=== PATIENT | female | born 1990 | race Caucasian/White ===

== ENCOUNTER 2016-05-16 08:20 | Emergency (ER) ==
[2016-05-16 08:24] VITALS: BP 171/93; TEMP 100; BMI 54.2
[2016-05-16] MEDS ORDERED: DECADRON 4 MG/ML SDV IM STA (08:41)
[2016-05-16] MEDS ORDERED: TORADOL IM STA (08:41)
[2016-05-16] MEDS ORDERED: DUONEB NEB STA (08:41)
--- NOTE | 2016-05-16 08:44 | ED.PDOC ---
General ED Provider: Dr. ALMA WALKER Chief Complaint: Respiratory Complaint Stated Complaint: Been coughing, congestion, sinus closed, headache, took otc meds no help Time Seen by Physician: 08:42 Mode of Arrival: Walk-In Information Source: Patient Nursing and Triage Documentation Reviewed and Agree: Yes Respiratory Complaint Exam - Respiratory Complaint/Exam Symptoms Are: Still present Timing: Constant Initial Severity: Mild Current Severity: Mild Location: Nose, Chest Character: Reports: Productive cough Aggravating: Reports: URI Alleviating: Reports: None Associated Signs and Symptoms: Reports: Wheezing, URI, Nasal congestion. Denies : Rapid breathing, Dyspnea, Fever, Chills, Chest pain, Pleuritic chest pain, Hemoptysis, Dizziness, Calf pain, Calf swelling, Edema, Hoarseness, Sinus discomfort, Vomiting, Sore throat, Weight loss, Decreased oral intake, Increased thirst, Increased appetite, Increased urination Related History: Reports: Similar episode History of Healthcare-Acquired Pneumonia: No Related Surgical History: Reports: None Pulmonary Embolism Risk Factors: None Cardiac Risk Factors: Reports: None Pseudomonas Risk Factors: Reports: None Tuberculosis Risk Factors: Reports: None Status Asthmaticus Risk Factors: Reports: None Home Oxygen Use: No Recent Stress Test: No Recent Echo/LV Function: No Current Antibiotic Use: No Current Asthma Medication Use: No Respiratory Distress: None Inadequate Respiratory Effort: No Dysphagia Present: No Retractions: Not Present Diminished Breath Sounds: No Sinus Tenderness: Frontal Grunting Respirations: No Differential Diagnoses: Pneumonia, Bronchitis, Influenza Review of Systems - Review Of Systems Constitutional: Reports: Fever, Malaise Eyes: Reports: No symptoms Ears, Nose, Mouth, Throat: Reports: Nose discharge Respiratory: Reports: Cough, Short of air Cardiac: Reports: No symptoms GI: Reports: No symptoms : Reports: No symptoms Musculoskeletal: Reports: No symptoms Skin: Reports: No symptoms Neurological: Reports: No symptoms Endocrine: Reports: No symptoms Hematologic/Lymphatic: Reports: No symptoms All Other Systems: Reviewed and Negative Past Medical History - Past Medical History Previously Healthy: Yes Endocrine: Reports: None Cardiovascular: Reports: None Respiratory: Reports: None Hematological: Reports: None Gastrointestinal: Reports: None Genitourinary: Reports: None Neuro/Psych: Reports: None Musculoskeletal: Reports: None Cancer: Reports: None Last Menstrual Period: gave 10 days ago - Surgical History General Surgical History: Reports: None - Family History Family History: Reports: Unknown - Social History Smoking Status: Current every day smoker Smoking Cessation Counseling Time: > 3 min - 10 min Hx Substance Use: No Alcohol Screening: None Physical Exam - Physical Exam Appearance: Ill-appearing, Obese Ill-appearing: Mild Eyes: ESCOBAR, EOMI, Conjunctiva clear ENT: Ears normal, Nose normal, Oropharynx normal Respiratory: Breath sounds diminished, Wheezes Cardiovascular: RRR, Pulses normal, No rub, No murmur GI/: Soft, Nontender, No masses, Bowel sounds normal, No Organomegaly Musculoskeletal: Normal strength, ROM intact, No edema, No calf tenderness Skin: Warm, Dry, Normal color Neurological: Sensation intact, Motor intact, Reflexes intact, Cranial nerves intact, Alert, Oriented Psychiatric: Affect appropriate, Mood appropriate Critical Care Note - Critical Care Note Total Time (mins): 0 Course - Course Orders, Labs, Meds: Lab Review 05/16/16 08:48 Influenza A (Rapid) Negative Influenza B (Rapid) Negative Orders Category Date Time Status NEBULIZER TREATMENT Stat CARDIO 05/16/16 08:41 Completed MOLECULAR GROUP A STREP Stat LAB 05/16/16 08:48 Results RAPID FLU A/B Stat LAB 05/16/16 08:48 Completed STREP SCREEN Stat LAB 05/16/16 08:48 Results Dexamethasone 4 mg/ml Inj [Decadron 4 mg/ml Sdv] MEDS 05/16/16 08:41 Discontinued 4 mg IM ONCE STA Ipratropium/Albuterol Neb [Duoneb] MEDS 05/16/16 08:41 Discontinued 1 vial NEB ONCE STA Ketorolac Tromethamine [Toradol] MEDS 05/16/16 08:41 Discontinued 60 mg IM ONCE STA CXR [CHEST, 2 VIEWS PA & LAT] Stat RADS 05/16/16 08:43 Taken Medications Discontinued Medications Generic Name Dose Route Start Last Admin Trade Name Freq PRN Reason Stop Dose Admin Albuterol/Ipratropium 1 vial 05/16/16 08:41 05/16/16 08:50 Duoneb NEB 05/16/16 08:42 1 vial ONCE STA Administration Dexamethasone Sodium Phosphate 4 mg 05/16/16 08:41 05/16/16 09:10 Decadron 4 Mg/Ml Sdv IM 05/16/16 08:42 4 mg ONCE STA Administration Ketorolac Tromethamine 60 mg 05/16/16 08:41 05/16/16 09:11 Toradol IM 05/16/16 08:42 60 mg ONCE STA Administration Vital Signs: Temp Pulse Resp BP Pulse Ox 05/16/16 08:20 100.0 F H 93 H 20 171/93 H 90 L Departure - Departure Time of Disposition: 10:30 Disposition: HOME SELF-CARE Discharge Problem: URTI (acute upper respiratory infection) Instructions: Upper Respiratory Infection (ED) Condition: Stable Pt referred to PMD for follow-up: No Additional Instructions: INCREASE HYDRATION TYLENOL PRN Prescriptions: Azithromycin [Zithromax] 250 mg PO DIRECTED #6 tablet Guaifenesin/Codeine Phosphate [Robitussin AC Syrup] 10 ml PO Q6H #1 bottle Prednisone 10 mg PO BIDWM #14 tablet Allergies/Adverse Reactions: Allergies Antihistamines - Alkylamine Adverse Reaction (Verified 05/16/16 08:26) Penicillins Adverse Reaction (Verified 05/16/16 08:26) Home Medications: Ambulatory Orders Azithromycin [Zithromax] 250 mg PO DIRECTED #6 tablet 05/16/16 Guaifenesin/Codeine Phosphate [Robitussin AC Syrup] 10 ml PO Q6H #1 bottle 05/16 Hydrocodone Bit/Acetaminophen [[place] 5-325] 1 tab PO TID PRN 05/16/16 Ibuprofen 800 mg PO Q8H 05/16/16 Prednisone 10 mg PO BIDWM #14 tablet 05/16/16 Disposition Discussed With: Patient
[2016-05-16 09:12] LABS: FLU INTERNAL QC INTERNAL QC VALID; RAPID FLU A NEGATIVE (NEGATIVE); RAPID FLU B NEGATIVE (NEGATIVE)
--- NOTE | 2016-05-16 09:45 | DI ---
EXAM: Chest two views HISTORY: Cough and COMPARISON: 05/24/2015 TECHNIQUE: Two views of the chest were performed FINDINGS: Left lower lobe consolidation and/or atelectasis with consolidation favored. Mild scatter ed subsegmental atelectasis. There is no pleural effusion or pneumothorax. The heart is normal in s ize. The mediastinal contour is normal. There are no acute abnormalities of the bones. IMPRESSION: Left lower lobe pneumonia and/or atelectasis with pneumonia favored. Radiographic foll ow-up recommended in 4 - 6 weeks to ensure resolution. Mild scattered subsegmental atelectasis. Report faxed at time of dictation
== END 2016-05-16 09:42 | disposition home or self-care (01) ==
LOC: ED 08:20
DX: J06.9 Acute upper respiratory infection, unspecified (principal); F17.210 Nicotine dependence, cigarettes, uncomplicated; Z98.890 Other specified postprocedural states
CPT/HCPCS: 87651; 87804; 87880; 94640; 96372; 99283

== ENCOUNTER 2016-06-08 09:56 | Emergency (ER) ==
[2016-06-08 10:01] VITALS: BP 142/88; TEMP 96; BMI 52.4
[2016-06-08] MEDS ORDERED: DUONEB NEB STA (10:17)
[2016-06-08] MEDS ORDERED: DECADRON 4 MG/ML SDV IM STA (10:18)
[2016-06-08 10:31] LABS: BASOPHILS % (AUTO) 0.2 % (0.0-3.0); EOSINOPHILS % (AUTO) 0.7 % (0.0-7.0); HEMATOCRIT 33.9 % (37.0-47.0); HEMOGLOBIN 10.7 g/dl (12.0-16.0); IMMATURE GRANULOCYTE % (AUTO) 0.5 % (0.0-5.0); LYMPHOCYTES # (AUTO) 0.5 K/uL (0.60-3.4); LYMPHOCYTES % (AUTO) 11.5 (10.0-50.0); MEAN CORPUSCULAR HEMOGLOBIN 27.5 pg (27.0-31.0); MEAN CORPUSCULAR HGB CONC 31.6 (31.8-35.4); MEAN CORPUSCULAR VOLUME 87.1 fl (81.0-99.0); MONOCYTES # (AUTO) 0.4 K/uL (0.4-2.0); MONOCYTES % (AUTO) 8.3 (0-10); NEUTROPHILS # (AUTO) 3.4 K/ul (2.0-6.9); NEUTROPHILS % (AUTO) 78.8; PLATELET COUNT 151 10^3/uL (140-440); RED BLOOD COUNT 3.89 10^6/ul (4.20-5.40); WHITE BLOOD COUNT 4.36 K/ul (4.6-10.2)
[2016-06-08 10:42] LABS: ABG BASE EXCESS -2 (-2.0-2.0); ABG HCO3 23.1 (22.0-26.0); ABG PCO2 37.6 mmHg (35-45); ABG PH 7.396 (7.35-7.45); ABG TCO2 24 (22.0-28.0)
--- NOTE | 2016-06-08 10:51 | DI ---
EXAM: Two views of the chest. History: Cough. Comparison: Chest radiograph 05/16/2016 Findings: Heart size is normal. Left lower lung infiltrates are not significantly changed. Develop ing upper lobe infiltrates. No definite pleural fluid and no pneumothorax. No acute osseous abnorm alities. Impression: Interval development of bilateral upper lobe infiltrates. No significant interval [place] in left lower lobe infiltrates.
[2016-06-08 11:05] LABS: ALBUMIN 3.2 g/dL (3.4-5.0); ALBUMIN/GLOBULIN RATIO 0.84; ANION GAP 12.6; BILIRUBIN,TOTAL 0.42 mg/dL (0.00-1.20); BUN/CREATININE RATIO 10.25; CALCIUM 8.9 mg/dL (8.2-10.2); CREATININE 0.78 mg/dL (0.60-1.30); POTASSIUM 3.6 mmol/L (3.5-5.10); TROPONIN I 0.012 ng/ml (0.0000-0.4000)
[2016-06-08] MEDS ORDERED: ROCEPHIN IM STA (11:17)
[2016-06-08] MEDS ORDERED: LIDOCAINE 1 % AMP 5 ML (SUTURES) IM STA (11:18)
--- NOTE | 2016-06-08 11:20 | ED.PDOC ---
General ED Provider: Dr. LARISA GONZALEZ Chief Complaint: Fever Stated Complaint: cough, flu like symptoms Time Seen by Physician: 10:00 (leni and megan present during exam and discharge) Mode of Arrival: Walk-In Information Source: Patient Exam Limitations: No limitations Primary Care Provider: MARGARETTE WHIPPLE Nursing and Triage Documentation Reviewed and Agree: Yes Respiratory Complaint Exam - Respiratory Complaint/Exam Symptoms Are: Still present Timing: Intermittent Initial Severity: Moderate Current Severity: Moderate Location: Throat, Chest Character: Reports: Non-productive cough Aggravating: Reports: None Alleviating: Reports: Bronchodilators, Spontaneous resolution Associated Signs and Symptoms: Reports: Chills Related History: Reports: Similar episode History of Healthcare-Acquired Pneumonia: No Related Surgical History: Reports: None Pulmonary Embolism Risk Factors: Smoking Cardiac Risk Factors: Reports: Smoking Pseudomonas Risk Factors: Reports: None Tuberculosis Risk Factors: Reports: None Status Asthmaticus Risk Factors: Reports: None Home Oxygen Use: No Recent Stress Test: No Recent Echo/LV Function: No Current Antibiotic Use: No Current Asthma Medication Use: No Respiratory Distress: None Inadequate Respiratory Effort: No Review of Systems - Review Of Systems Constitutional: Reports: Fever, Malaise Eyes: Reports: No symptoms Ears, Nose, Mouth, Throat: Reports: No symptoms Respiratory: Reports: Cough Cardiac: Reports: No symptoms GI: Reports: No symptoms : Reports: No symptoms Musculoskeletal: Reports: No symptoms Skin: Reports: No symptoms Neurological: Reports: No symptoms Endocrine: Reports: No symptoms Hematologic/Lymphatic: Reports: No symptoms All Other Systems: Reviewed and Negative Past Medical History - Past Medical History Previously Healthy: Yes Endocrine: Reports: None Cardiovascular: Reports: None Respiratory: Reports: None Hematological: Reports: None Gastrointestinal: Reports: None Genitourinary: Reports: None Neuro/Psych: Reports: None Musculoskeletal: Reports: None Cancer: Reports: None Last Menstrual Period: 05/06/16 - Surgical History General Surgical History: Reports: None - Family History Family History: Reports: Unknown - Social History Smoking Status: Current every day smoker Hx Substance Use: No Alcohol Screening: None - Immunizations Tetanus Shot up to Date: Yes Physical Exam - Physical Exam Appearance: Well-appearing, No pain distress, Well-nourished Eyes: ESCOBAR, EOMI, Conjunctiva clear ENT: Ears normal, Nose normal, Oropharynx normal Respiratory: Airway patent, Breath sounds clear, Breath sounds equal, Respirations nonlabored Cardiovascular: RRR, Pulses normal, No rub, No murmur GI/: Soft, Nontender, No masses, Bowel sounds normal, No Organomegaly Musculoskeletal: Normal strength, ROM intact, No edema, No calf tenderness Skin: Warm, Dry, Normal color Neurological: Sensation intact, Motor intact, Reflexes intact, Cranial nerves intact, Alert, Oriented Psychiatric: Affect appropriate, Mood appropriate Interpretation - Radiology Interpretation Radiology Interpretation By: Radiologist Radiology Results: Positive (pneumonia) Critical Care Note - Critical Care Note Total Time (mins): 0 Course - Course Hematology/Chemistry: 06/08/16 10:20 06/08/16 10:20 Orders, Labs, Meds: Lab Review 06/08/16 06/08/16 10:17 10:20 WBC 4.36 L RBC 3.89 L Hgb 10.7 L Hct 33.9 L MCV 87.1 MCH 27.5 MCHC 31.6 L RDW Coeff of Shar 15.4 H Plt Count 151 Immature Gran % (Auto) 0.5 Neut % (Auto) 78.8 Lymph % (Auto) 11.5 [place] % (Auto) 8.3 Eos % (Auto) 0.7 Baso % (Auto) 0.2 Immature Gran # (Auto) 0.0 Neut # 3.4 Lymph # 0.5 L [place] # 0.4 Eos # 0.0 Baso # 0.0 D-Dimer 0.24 Puncture Site L brach O2 Saturation 92.0 L ABG pH 7.396 ABG pCO2 37.6 ABG pO2 63.0 L ABG HCO3 23.1 ABG Total CO2 24 ABG Base Excess -2 Ad Test + FiO2 % 21.0 Sodium 140 Potassium 3.6 Chloride 106 Carbon Dioxide 25 Anion Gap 12.6 BUN 8 Creatinine 0.78 Estimated GFR (MDRD) 89.00 BUN/Creatinine Ratio 10.25 Glucose 99 Calcium 8.9 Total Bilirubin 0.42 AST 31 ALT 27 Alkaline Phosphatase 91 Total Creatine Kinase 122 CK-MB (CK-2) 1.0 CK-MB (CK-2) % 0.71434 Troponin I 0.0120 Total Protein 7.0 Albumin 3.2 L Globulin 3.8 Albumin/Globulin Ratio 0.84 Orders Category Date Time Status ABG DRAW REQUEST Stat CARDIO 06/08/16 10:17 Completed EKG-(ED ONLY) Stat CARDIO 06/08/16 10:51 Ordered NEBULIZER TREATMENT Stat CARDIO 06/08/16 10:17 Completed ABG Stat LAB 06/08/16 10:17 Completed CBC W/ AUTO DIFF Stat LAB 06/08/16 10:20 Completed COMPREHENSIVE METABOLIC PANEL Stat LAB 06/08/16 10:20 Completed CREATINE KINASE Stat LAB 06/08/16 10:20 Completed D-DIMER Stat LAB 06/08/16 10:20 Completed TROPONIN I Stat LAB 06/08/16 10:20 Completed Ceftriaxone Sodium [Rocephin] MEDS 06/08/16 11:17 Discontinued 1 gm IM ONCE STA Dexamethasone 4 mg/ml Inj [Decadron 4 mg/ml Sdv] MEDS 06/08/16 10:18 Discontinued 4 mg IM ONCE STA Ipratropium/Albuterol Neb [Duoneb] MEDS 06/08/16 10:17 Discontinued 1 vial NEB ONCE STA Lidocaine HCl/Pf [Lidocaine 1 % Amp 5 ml (Sutures)] MEDS 06/08/16 11:18 Discontinued 2.1 ml IM ONCE STA CHEST, 2 VIEWS PA & LAT Stat RADS 06/08/16 10:15 Completed Medications Discontinued Medications Generic Name Dose Route Start Last Admin Trade Name Freq PRN Reason Stop Dose Admin Albuterol/Ipratropium 1 vial 06/08/16 10:17 06/08/16 10:37 Duoneb NEB 06/08/16 10:18 1 vial ONCE STA Administration Ceftriaxone Sodium 1 gm 06/08/16 11:17 Rocephin IM 06/08/16 11:18 ONCE STA Dexamethasone Sodium Phosphate 4 mg 06/08/16 10:18 06/08/16 10:29 Decadron 4 Mg/Ml Sdv IM 06/08/16 10:19 4 mg ONCE STA Administration Lidocaine HCl 2.1 ml 06/08/16 11:18 Lidocaine 1 % Amp 5 Ml (Sutures) IM 06/08/16 11:19 ONCE STA Vital Signs: Temp Pulse Resp BP Pulse Ox 06/08/16 09:56 96 F L 100 H 22 142/88 H 990 H Departure - Departure Time of Disposition: 11:20 Disposition: AMA Discharge Problem: Fever, Pneumonia Instructions: Pneumonitis (ED) Condition: Good Pt referred to PMD for follow-up: No Additional Instructions: Please call your Family Physician as soon as possible to schedule a follow-up appointment. you left against my advise , this condition is a serious problem you cant from problem please see your dcotor as soon as possible retrurn if you change your mind Allergies/Adverse Reactions: Allergies Antihistamines - Alkylamine Adverse Reaction (Verified 06/08/16 10:05) Penicillins Adverse Reaction (Verified 06/08/16 10:05)
== END 2016-06-08 11:53 | disposition left against medical advice (07) ==
LOC: ED 09:56
DX: J18.9 Pneumonia, unspecified organism (principal); F17.210 Nicotine dependence, cigarettes, uncomplicated
CPT/HCPCS: 36415; 80053; 82550; 82553; 82803; 84484; 85025; 85379; 94640; 96372; 99284

== ENCOUNTER 2016-09-11 16:25 | Outpatient (CLI) ==
[2016-09-11 17:25] LABS: BASOPHILS % (AUTO) 0.2 % (0.0-3.0); EOSINOPHILS # (AUTO) 0.3 K/ul (0.0-0.7); EOSINOPHILS % (AUTO) 3.6 % (0.0-7.0); HEMATOCRIT 36.9 % (37.0-47.0); HEMOGLOBIN 11.6 g/dl (12.0-16.0); IMMATURE GRANULOCYTE % (AUTO) 0.1 % (0.0-5.0); LYMPHOCYTES # (AUTO) 1.8 K/uL (0.60-3.4); LYMPHOCYTES % (AUTO) 21.7 (10.0-50.0); MEAN CORPUSCULAR HEMOGLOBIN 26.2 pg (27.0-31.0); MEAN CORPUSCULAR HGB CONC 31.4 (31.8-35.4); MEAN CORPUSCULAR VOLUME 83.3 fl (81.0-99.0); MONOCYTES # (AUTO) 0.6 K/uL (0.4-2.0); MONOCYTES % (AUTO) 6.6 (0-10); NEUTROPHILS # (AUTO) 5.7 K/ul (2.0-6.9); NEUTROPHILS % (AUTO) 67.8; PLATELET COUNT 187 10^3/uL (140-440); RED BLOOD COUNT 4.43 10^6/ul (4.20-5.40); WHITE BLOOD COUNT 8.43 K/ul (4.6-10.2)
[2016-09-11 18:11] LABS: ALBUMIN 3.4 g/dL (3.4-5.0); ALBUMIN/GLOBULIN RATIO 0.79; ANION GAP 10.9; BILIRUBIN,TOTAL 0.32 mg/dL (0.00-1.20); BUN/CREATININE RATIO 11.53; CALCIUM 9.3 mg/dL (8.2-10.2); CHOL/HDL RATIO 2.8 (4.5-5.5); CREATININE 0.78 mg/dL (0.60-1.30); FERRITIN 15.44 ng/mL (4.63-204.00); POTASSIUM 3.9 mmol/L (3.5-5.10); TOTAL PROTEIN 7.7 g/dL (6.4-8.2)
== END 2016-09-11 16:26 | disposition home or self-care (01) ==
LOC: LAB 16:25
PROVIDERS: ATTEND Nurse Practitioner Family
DX: J45.909 Unspecified asthma, uncomplicated (principal); E66.9 Obesity, unspecified; Z72.0 Tobacco use; Z86.2 Personal history of diseases of the blood and blood-forming organs and certain disorders involving the immune mechanism
CPT/HCPCS: 36415; 80053; 80061; 82607; 82728; 83540; 83550; 84443; 84466; 85025

== ENCOUNTER 2016-10-29 01:18 | Emergency (ER) ==
[2016-10-29 01:28] VITALS: BP 144/87; TEMP 98.1; BMI 51.2
[2016-10-29] MEDS ORDERED: TORADOL IM STA (01:36)
--- NOTE | 2016-10-29 01:40 | ED.PDOC ---
General ED Provider: Dr. LINNETTE TOBAR-ER Chief Complaint: Tooth Problem Stated Complaint: my teeth really hurt Time Seen by Physician: 01:37 Mode of Arrival: Walk-In Information Source: Patient Exam Limitations: No limitations Primary Care Provider: MARGARETTE WHIPPLE Nursing and Triage Documentation Reviewed and Agree: Yes EENT Complaint Exam - Dental/Oral Complaint/Exam Mechanism of Injury: No known trauma Onset/Duration: 24 hrs Symptoms Are: Still present Timing: Constant Initial Severity: Mild Current Severity: Moderate Location: right lower molar Character: Reports: Dull, Aching, Throbbing Aggravating: Reports: Heat, Cold, Chewing Alleviating: Reports: None Associated Signs and Symptoms: Denies: Swelling, Discharge, Fever, Foul odor, Foul taste in mouth Related History: Reports: Previous tooth problem Cardiac Risk Factors: Reports: None Dental/Oral Surgical History: Reports: None Tooth Findings: Present: Percussion tenderness, Gross decay, Gross caries Cervical Lymphadenopathy Present: No Facial Swelling Present: No Bleeding Present: No Oropharynx Findings: Absent: Clots, Active bleeding Septal Hematoma: No Foreign Body Present: No Dysphagia Present: No Drooling Present: No Asymmetrical Tonsillar Swelling Present: No Uvula Midline: Yes Rissa-tonsillar Fluctuence: No Trismus Present: No Palatal Petechiae Present: No Scarlatinaform Rash Present: No Differential Diagnoses: Dental Caries Review of Systems - Review Of Systems Constitutional: Reports: No symptoms Eyes: Reports: No symptoms Ears, Nose, Mouth, Throat: Reports: Mouth pain Respiratory: Reports: No symptoms Cardiac: Reports: No symptoms GI: Reports: No symptoms : Reports: No symptoms Musculoskeletal: Reports: No symptoms Skin: Reports: No symptoms Neurological: Reports: No symptoms Endocrine: Reports: No symptoms Hematologic/Lymphatic: Reports: No symptoms All Other Systems: Reviewed and Negative Past Medical History - Past Medical History Previously Healthy: Yes Endocrine: Reports: None Cardiovascular: Reports: None Respiratory: Reports: None Hematological: Reports: None Gastrointestinal: Reports: None Genitourinary: Reports: None Neuro/Psych: Reports: None Musculoskeletal: Reports: None Cancer: Reports: None Last Menstrual Period: 4 days ago - Surgical History General Surgical History: Reports: None - Family History Family History: Reports: Unknown - Social History Smoking Status: Current every day smoker Hx Substance Use: Yes (occasional marijuana) Alcohol Screening: Occasionally - Immunizations Tetanus Shot up to Date: No (unsure) Physical Exam - Physical Exam Appearance: Well-appearing, No pain distress, Well-nourished Pain Distress: Moderate Eyes: ESCOBAR, EOMI, Conjunctiva clear ENT: Ears normal, Nose normal, Oropharynx normal Neck: Supple Respiratory: Airway patent, Breath sounds clear, Breath sounds equal, Respirations nonlabored Cardiovascular: RRR, Pulses normal, No rub, No murmur GI/: Soft, Nontender, No masses, Bowel sounds normal, No Organomegaly Musculoskeletal: Normal strength Skin: Warm, Dry, Normal color Neurological: Sensation intact, Motor intact, Reflexes intact, Cranial nerves intact, Alert, Oriented Psychiatric: Affect appropriate, Mood appropriate Critical Care Note - Critical Care Note Total Time (mins): 0 Course - Course Orders, Labs, Meds: Orders Category Date Time Status Ketorolac Tromethamine [Toradol] MEDS 10/29/16 01:36 Stat 60 mg IM ONCE STA Medications Generic Name Dose Route Start Last Admin Trade Name Freq PRN Reason Stop Dose Admin Ketorolac Tromethamine 60 mg 10/29/16 01:36 Toradol IM 10/29/16 01:37 ONCE STA Vital Signs: Temp Pulse Resp BP Pulse Ox 10/29/16 01:19 98.1 F 69 20 144/87 H 98 Departure - Departure Time of Disposition: 01:39 Disposition: HOME SELF-CARE Discharge Problem: Dental caries Instructions: Toothache (ED) Condition: Good Pt referred to PMD for follow-up: Yes Additional Instructions: clindamycin 150mg tid x 7days..norco 5mg q 4hrs prn pain #10--f/u dentist janeth Allergies/Adverse Reactions: Allergies Antihistamines - Alkylamine Adverse Reaction (Verified 10/29/16 01:28) Penicillins Adverse Reaction (Verified 10/29/16 01:28) Disposition Discussed With: Patient
== END 2016-10-29 01:55 | disposition home or self-care (01) ==
LOC: ED 01:18
DX: K02.7 Dental root caries (principal); F17.210 Nicotine dependence, cigarettes, uncomplicated
CPT/HCPCS: 96372; 99282

== ENCOUNTER 2017-11-11 10:08 | Outpatient (CLI) ==
--- NOTE | 2017-11-11 11:20 | DI ---
EXAM: Two views of the chest. History: Acute upper respiratory infection. Comparison: Chest radiograph 06/08/2016 Findings: Heart size is normal. Right perihilar infiltrate. No appreciable pleural fluid and no pn eumothorax. No acute osseous abnormalities. Impression: Right perihilar pneumonia. Follow-up recommended.
== END 2017-11-11 10:09 | disposition home or self-care (01) ==
LOC: RAD 10:08
PROVIDERS: ATTEND Emergency Medicine
DX: J06.9 Acute upper respiratory infection, unspecified (principal); J45.909 Unspecified asthma, uncomplicated

== ENCOUNTER 2018-02-15 11:11 | Emergency (ER) ==
[2018-02-15 11:18] VITALS: BMI 44.9
--- NOTE | 2018-02-15 14:28 | ED.PDOC ---
General ED Provider: Dr. LARISA GONZALEZ Chief Complaint: Behavioral Complaint Stated Complaint: depressed suicidal ideation . pt stated she has money issues, has no reiends no family member swill help her 4 days agotook some pills but she does not know what meds were taken but, stated only 3 to 4 pills were consumed . Time Seen by Physician: 11:11 Mode of Arrival: Walk-In Information Source: Patient Exam Limitations: No limitations Nursing and Triage Documentation Reviewed and Agree: Yes Does patient meet sepsis criteria?: No System Inflammatory Response Syndrome: Not Applicable Sepsis Protocol: For patient's 13 years and over: Temp is 96.8 and below OR 101 and greater Pulse >90 BPM Resp >20/minute Acutely Altered Mental Status Are patient's symptoms suggestive of a new infection, such as: -Pneumonia -Skin, Soft Tissue -Endocarditis -UTI -Bone, Joint Infection -Implantable Device -Acute Abdominal Infection -Wound Infection -Meningitis -Blood Stream Catheter Infection -Unknown Psychological Complaint Exam - Psychiatric Complaint/Exam Patient Complains Of: Present: Depression, Suicidal thoughts, Suicidal gestures (4 days ago), Other (none since ) Onset/Duration: 1 week Symptoms Are: Still present Timing: Intermittent Episodes Lasting: Days Initial Severity: Moderate Current Severity: Mild Character: Present: Depressed, Fearful, Anxious, Frustrated Aggravating: Reports: Recent stress (money related issues ) Associated Signs And Symptoms: Denies: Hostile, Confused, Hallucinating, Paranoid behavior, Sleep disturbance, Appetite change Related History: Reports: Suicidal thoughts, Prior attempts, Recent stressors, Drug ingestion (4days ago meds were not disclosed ). Denies: Suicidal gestures , Homicidal thoughts, Homicidal plan, Homicidal gestures Completed Suicide Risk Factors: Past suicide attempt Patient Accompanied By: Other (was sent by mental health) Patient In Custody Of Police: No Social Withdrawal Present: Yes Social Isolation Present: Yes Prior Suicide Attempt: Yes Injury From Prior Suicide Attempt: No Related Surgical History: Reports: None Patient Uncooperative For Exam: No Mood: Present: Depressed, Angry, Agitated, Anxious. Absent: Guarded, Paranoid, Hallucinating, Manic, Hearing voices Appearance: Present: Clean Thought Process: Present: Logical Insight: Present: Good Memory: Intact Judgement: Impaired Danger To Others: No Patient Medically Stable For: Psych evaluation Differential Diagnoses: Depression, Suicidal Ideation Review of Systems - Review Of Systems Constitutional: Reports: No symptoms Eyes: Reports: No symptoms Ears, Nose, Mouth, Throat: Reports: No symptoms Respiratory: Reports: No symptoms Cardiac: Reports: No symptoms GI: Reports: No symptoms : Reports: No symptoms Musculoskeletal: Reports: No symptoms Skin: Reports: No symptoms Neurological: Reports: Emotional problems Endocrine: Reports: No symptoms Hematologic/Lymphatic: Reports: No symptoms All Other Systems: Reviewed and Negative Past Medical History - Past Medical History Previously Healthy: Yes Endocrine: Reports: None Cardiovascular: Reports: None Respiratory: Reports: None Hematological: Reports: None Gastrointestinal: Reports: None Genitourinary: Reports: None Neuro/Psych: Reports: None Musculoskeletal: Reports: None Cancer: Reports: None Last Menstrual Period: JAN 27 2018 - Surgical History General Surgical History: Reports: None - Family History Family History: Reports: Unknown - Social History Smoking Status: Current every day smoker Hx Substance Use: Yes (occasional marijuana) Alcohol Screening: Occasionally Physical Exam - Physical Exam Appearance: Well-appearing, No pain distress, Well-nourished Eyes: ESCOBAR, EOMI, Conjunctiva clear ENT: Ears normal, Nose normal, Oropharynx normal Respiratory: Airway patent, Breath sounds clear, Breath sounds equal, Respirations nonlabored Cardiovascular: RRR, Pulses normal, No rub, No murmur GI/: Soft, Nontender, No masses, Bowel sounds normal, No Organomegaly Musculoskeletal: Normal strength, ROM intact, No edema, No calf tenderness Skin: Warm, Dry, Normal color Neurological: Sensation intact, Motor intact, Reflexes intact, Cranial nerves intact, Alert, Oriented Psychiatric: Affect appropriate, Mood appropriate Critical Care Note - Critical Care Note Total Time (mins): 0 Course - Course Hematology/Chemistry: 02/15/18 11:45 02/15/18 11:45 Orders, Labs, Meds: Lab Review 02/15/18 02/15/18 02/15/18 11:16 11:30 11:45 WBC 9.04 RBC 4.50 Hgb 13.4 Hct 39.7 MCV 88.2 MCH 29.8 MCHC 33.8 RDW Coeff of Shar 13.4 Plt Count 169 Immature Gran % (Auto) 0.3 Neut % (Auto) 72.4 Lymph % (Auto) 19.0 [place] % (Auto) 5.3 Eos % (Auto) 2.8 Baso % (Auto) 0.2 Immature Gran # (Auto) 0.0 Neut # (Auto) 6.5 Lymph # (Auto) 1.7 [place] # (Auto) 0.5 Eos # (Auto) 0.3 Baso # (Auto) 0.0 Sodium Potassium Chloride Carbon Dioxide Anion Gap BUN Creatinine Estimated GFR (MDRD) BUN/Creatinine Ratio Glucose Calcium Total Bilirubin AST ALT Alkaline Phosphatase Total Protein Albumin Globulin Albumin/Globulin Ratio Serum , Qual Urine Color Yellow Urine Clarity Slightly Urine pH 5.5 Ur Specific [place] 1.020 Urine Protein Negative Urine Glucose (UA) Negative Urine Ketones Negative Urine Blood Negative Urine Nitrite Negative Urine Bilirubin Negative Urine Urobilinogen 0.2 Ur Leukocyte Esterase Trace Urine Microscopic RBC 0-2 Urine Microscopic WBC 0-2 Ur Squamous Epith Cells 2-5 Urine Bacteria 2+ Urine Mucus 1+ Salicylate Level mg/dL Urine Opiates Screen Negative Ur Oxycodone Screen Negative Urine Methadone Screen Negative Ur Propoxyphene Screen Negative Acetaminophen Ur Barbiturates Screen Negative U Tricyclic Antidepress Negative Ur Phencyclidine Scrn Negative Ur Amphetamine Screen Negative U Methamphetamines Scrn Negative U Benzodiazepines Scrn Negative Urine Cocaine Screen Negative U Cannabinoids Screen Positive Plasma/Serum Alcohol Influ A Molecular Assay Influ B Molecular Assay 02/15/18 02/15/18 02/15/18 11:45 11:45 15:50 WBC RBC Hgb Hct MCV MCH MCHC RDW Coeff of Shar Plt Count Immature Gran % (Auto) Neut % (Auto) Lymph % (Auto) [place] % (Auto) Eos % (Auto) Baso % (Auto) Immature Gran # (Auto) Neut # (Auto) Lymph # (Auto) [place] # (Auto) Eos # (Auto) Baso # (Auto) Sodium 137.9 Potassium 3.80 Chloride 103.4 Carbon Dioxide 28.4 Anion Gap 9.90 BUN 8.7 Creatinine 0.71 Estimated GFR (MDRD) 97.00 BUN/Creatinine Ratio 12.25 Glucose 91.8 Calcium 9.25 Total Bilirubin 0.55 AST 13.6 L ALT 10.9 Alkaline Phosphatase 67.9 Total Protein 7.67 Albumin 4.10 Globulin 3.57 Albumin/Globulin Ratio 1.14 Serum , Qual Negative Urine Color Urine Clarity Urine pH Ur Specific [place] Urine Protein Urine Glucose (UA) Urine Ketones Urine Blood Urine Nitrite Urine Bilirubin Urine Urobilinogen Ur Leukocyte Esterase Urine Microscopic RBC Urine Microscopic WBC Ur Squamous Epith Cells Urine Bacteria Urine Mucus Salicylate Level mg/dL < 1.00 Urine Opiates Screen Ur Oxycodone Screen Urine Methadone Screen Ur Propoxyphene Screen Acetaminophen < 10.0 L Ur Barbiturates Screen U Tricyclic Antidepress Ur Phencyclidine Scrn Ur Amphetamine Screen U Methamphetamines Scrn U Benzodiazepines Scrn Urine Cocaine Screen U Cannabinoids Screen Plasma/Serum Alcohol < 10.0 Influ A Molecular Assay Negative by naat Influ B Molecular Assay Negative by naat Orders Category Date Time Status EKG-(ED ONLY) Stat CARDIO 02/15/18 11:16 Completed ED 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 02/15/18 11:16 Active ACETAMINOPHEN Stat LAB 02/15/18 11:45 Completed BLOOD ALCOHOL Stat LAB 02/15/18 11:45 Completed CBC W/ AUTO DIFF Stat LAB 02/15/18 11:45 Completed COMPREHENSIVE METABOLIC PANEL Stat LAB 02/15/18 11:45 Completed DRUG SCREEN, URINE, RAPID Stat LAB 02/15/18 11:16 Completed FLU A & B MOLECULAR [FLU A/B MOLECULAR] Stat LAB 02/15/18 15:50 Completed SALICYLATE Stat LAB 02/15/18 11:45 Completed SERUM Stat LAB 02/15/18 11:45 Completed URINALYSIS C & S IF INDICATED Stat LAB 02/15/18 11:30 Completed URINE CULTURE Stat LAB 02/15/18 11:30 Received Vital Signs: Temp Pulse Resp BP Pulse Ox 02/15/18 11:11 97.0 F L 69 18 120/84 97 Departure - Departure Time of Disposition: 17:11 Disposition: TSF SHORT-TRM HOSP Discharge Problem: Suicidal ideation, Encounter for psychological evaluation, Psychiatric follow- up Instructions: Depression (ED), Help Prevent Suicide (ED) Condition: Good Pt referred to PMD for follow-up: Yes IPMP verified?: No Additional Instructions: Please call your Family Physician as soon as possible to schedule a follow-up appointment. Allergies/Adverse Reactions: Allergies Antihistamines - Alkylamine Adverse Reaction (Verified 02/15/18 11:18) Penicillins Adverse Reaction (Verified 02/15/18 11:18) Disposition Discussed With: Patient
[2018-02-15 17:25] VITALS: BP 121/68; TEMP 97.4
== END 2018-02-15 18:49 | disposition short-term general hospital (02) ==
LOC: ED 11:11
DX: R45.851 Suicidal ideations (principal); F17.210 Nicotine dependence, cigarettes, uncomplicated
CPT/HCPCS: 36415; 80053; 80306; 80307; 81001; 84703; 85025; 87086; 87502; 93005; 93010; 99285